=== PATIENT | male | born 1950 | race Asian ===

== ENCOUNTER 2017-08-15 16:29 | Outpatient (CLI) | payer OTHER ==
[~2017-08-15 16:29] MED LIST: ONDA4TAB3 PO
[2017-08-15 17:12] LABS: PLATELET COUNT 187 K/uL (142-355)
== END 2017-08-15 19:40 | disposition home or self-care (01) ==
LOC: LABW 16:29
PROVIDERS: Internal Medicine Gastroenterology
DX: B18.2 Chronic viral hepatitis C (principal)
CPT/HCPCS: 36415; 80074; 80076; 85027; 85610; 87522; 87902

== ENCOUNTER 2017-08-23 09:29 | Outpatient (CLI) | payer OTHER | END 2017-08-23 21:27 | disposition home or self-care (01) | LOC: US 09:29 | DX: B18.2 Chronic viral hepatitis C (principal) ==

== ENCOUNTER 2017-08-30 11:02 | Day surgery (SDC) | payer OTHER ==
[2017-08-30 12:29] LABS: PLATELET COUNT 199 K/uL (142-355)
== END 2017-08-30 14:20 | disposition home or self-care (01) ==
LOC: OR 11:02
PROVIDERS: Internal Medicine Gastroenterology
PROC: 0DB68ZZ Excision of Stomach, Via Natural or Artificial Opening Endoscopic (ICD-10-PCS; principal; 2017-08-30)
PROC: 0DB88ZZ Excision of Small Intestine, Via Natural or Artificial Opening Endoscopic (ICD-10-PCS; 2017-08-30)
DX: K25.9 Gastric ulcer, unspecified as acute or chronic, without hemorrhage or perforation (principal); K29.00 Acute gastritis without bleeding; B96.81 Helicobacter pylori [H. pylori] as the cause of diseases classified elsewhere; K21.0 Gastro-esophageal reflux disease with esophagitis; R10.13 Epigastric pain; R11.0 Nausea; R10.11 Right upper quadrant pain
CPT/HCPCS: 80053; 85027; J2704

== ENCOUNTER 2017-10-11 09:40 | Day surgery (SDC) | payer OTHER | END 2017-10-11 13:22 | disposition home or self-care (01) | LOC: OR 09:40 | PROC: 0DBM8ZZ Excision of Descending Colon, Via Natural or Artificial Opening Endoscopic (ICD-10-PCS; principal; 2017-10-11) | DX: D12.4 Benign neoplasm of descending colon (principal); K57.30 Diverticulosis of large intestine without perforation or abscess without bleeding; K64.8 Other hemorrhoids; Z12.11 Encounter for screening for malignant neoplasm of colon | CPT/HCPCS: J2001; J2704 ==

== ENCOUNTER 2018-10-31 10:18 | Outpatient (CLI) | payer OTHER | END 2018-10-31 23:47 | disposition home or self-care (01) | LOC: RAD 10:18 | DX: M79.642 Pain in left hand (principal) ==

== ENCOUNTER 2019-04-26 12:44 | Emergency (ER) | payer OTHER ==
[~2019-04-26] VITALS: Ht 172.7 cm; Wt 65.8 kg
[2019-04-26 12:56] VITALS: TEMP 99.7
[2019-04-26 15:44] LABS: PLATELET COUNT 187 K/uL (142-355)
[2019-04-26 15:50] LABS: POTASSIUM 3.6 mmol/L (3.6-5.2)
[2019-04-26 17:56] VITALS: BP 132/68
== END 2019-04-26 17:57 | disposition home or self-care (01) ==
LOC: ED 12:44
PROVIDERS: Family Medicine
DX: K59.09 Other constipation (principal); M47.896 Other spondylosis, lumbar region
CPT/HCPCS: 80053; 81000; 85027; 99283

== ENCOUNTER 2019-11-12 10:39 | Emergency (ER) | payer OTHER ==
[~2019-11-12] VITALS: Ht 172.7 cm; Wt 65.8 kg
[2019-11-12 10:53] VITALS: BP 112/78; TEMP 99.1
[2019-11-12 11:55] LABS: PLATELET COUNT 167 K/uL (142-355)
[2019-11-12 12:03] LABS: POTASSIUM 3.9 mmol/L (3.6-5.2)
== END 2019-11-12 13:21 | disposition home or self-care (01) ==
LOC: ED 10:39
PROVIDERS: Family Medicine
DX: M13.811 Other specified arthritis, right shoulder (principal); M62.838 Other muscle spasm
CPT/HCPCS: 80053; 81000; 85027; 99283

== ENCOUNTER 2020-07-01 09:27 | Outpatient (CLI) | payer OTHER | END 2020-07-01 22:08 | disposition home or self-care (01) | LOC: RESP 09:27 | PROVIDERS: ATTEND Registered Nurse | DX: R55 Syncope and collapse (principal) ==

== ENCOUNTER 2020-12-01 08:52 | Emergency (ER) | payer OTHER ==
[~2020-12-01] VITALS: Ht 172.7 cm; Wt 56.7 kg
[2020-12-01 09:15] VITALS: BP 106/65; TEMP 97.8
== END 2020-12-01 10:51 | disposition home or self-care (01) ==
LOC: ED 08:52
DX: U07.1 COVID-19 (principal); J20.9 Acute bronchitis, unspecified; F17.210 Nicotine dependence, cigarettes, uncomplicated
CPT/HCPCS: 87635; 99283; U0003

== ENCOUNTER 2021-08-08 10:09 | Emergency (ER) | payer OTHER ==
[~2021-08-08] VITALS: Ht 172.7 cm; Wt 63.5 kg
[2021-08-08 10:21] VITALS: TEMP 97.8
[2021-08-08 12:10] VITALS: BP 124/84
== END 2021-08-08 12:10 | disposition home or self-care (01) ==
LOC: ED 10:09
DX: S93.692A Other sprain of left foot, initial encounter (principal); W22.8XXA Striking against or struck by other objects, initial encounter; Y92.89 Other specified places as the place of occurrence of the external cause
CPT/HCPCS: 99283; J1885

== ENCOUNTER 2022-11-23 19:34 | Emergency (ER) | payer OTHER ==
[~2022-11-23] VITALS: Ht 172.7 cm; Wt 53.1 kg
[2022-11-23 21:25] LABS: PLATELET COUNT 181 K/uL (142-355)
[2022-11-23 21:31] LABS: POTASSIUM 4.2 mmol/L (3.6-5.2)
[2022-11-24 00:10] VITALS: BP 135/82; TEMP 97.4
== END 2022-11-24 00:10 | disposition home or self-care (01) ==
LOC: ED 19:34
PROVIDERS: Family Medicine
DX: R42 Dizziness and giddiness (principal); F17.210 Nicotine dependence, cigarettes, uncomplicated
CPT/HCPCS: 80053; 81002; 82150; 83690; 85027; 99283

== ENCOUNTER 2023-01-18 09:22 | Day surgery (SDC) | payer OTHER ==
[~2023-01-18] VITALS: Ht 165.1 cm; Wt 68.0 kg
== END 2023-01-18 12:40 | disposition home or self-care (01) ==
LOC: OR 09:22
PROVIDERS: ATTEND Internal Medicine Gastroenterology
PROC: 0DD88ZX Extraction of Small Intestine, Via Natural or Artificial Opening Endoscopic, Diagnostic (ICD-10-PCS; principal; 2023-01-18)
DX: K20.90 Esophagitis, unspecified without bleeding (principal); K29.00 Acute gastritis without bleeding
CPT/HCPCS: J2001; J2704; J7120